=== PATIENT | female | born 1960 | race Caucasian/White ===

== ENCOUNTER 2017-04-14 21:30 | Inpatient (IN) | payer MEDICARE, MEDICAID ==
[~2017-04-14] VITALS: Ht 152.4 cm; Wt 91.5 kg
[~2017-04-14 21:30] MED LIST: APRESOLINE50 MG PO; CATAPRES 0.1MG0.1 MG PO; COZAAR 50MG50 MG/TAB PO; FOLIC ACID 11 MG/TA1 PO; LASIX 20MG TABL20 MG PO; LIPITOR 40MG TA40 MG PO; NEURONTIN300 MG/CAP PO; NEURONTIN800 MG/TAB PO; PHENERGAN W/CO120 M1 PO; PLAVIX 75MG TAB75 MG PO; ULTRAM 50MG TAB50 MG PO; ZANTAC 300300 MG PO; ZITHROMAX Z PA250 MG PO; ZOFRAN ODT4 MG PO
[2017-04-14] MEDS ORDERED: ZOCOR 10MG10 MG PO (22:03)
[2017-04-14] MEDS ORDERED: NEURONTIN300 MG/CAP PO ×2 (22:06)
[2017-04-14] MEDS ORDERED: NEURONTIN800 MG/TAB PO (22:07)
[2017-04-14 22:48] LABS: MEAN CELL VOLUME 87 fl (80.0-100.0); MEAN CORPUSCULAR HGB CONC 32 g/dl (33.0-37.0); MEAN PLATELET VOLUME 10.3 fl (7.4-10.4); PLATELET COUNT 184 K/mm3 (130-400); RED BLOOD COUNT 3.12 M/mm3 (4.10-5.30); REDCELL DISTRIBUTION WIDTH-CV 16.8 % (11.5-14.5); WHITE BLOOD COUNT 5.7 K/mm3 (4.8-10.8)
[2017-04-14 22:52] LABS: ADD PATHOLOGY DIFF REVIEW NO; HEMATOCRIT 27.2 % (37.0-47.0); HEMOGLOBIN 8.8 g/dl (12.5-16.0); MEAN CORPUSCULAR HEMOGLOBIN 28 pg (27.0-31.0)
[2017-04-14 23:00] LABS: ADJUSTED CALCIUM 8.9 mg/dL (8.4-10.2); ALANINE AMINOTRANSFERASE 19 U/L (9-52); ALBUMIN 3.7 gm/dL (3.5-5.0); ALKALINE PHOSPHATASE 65 U/L (50-136); ANION GAP 13 mmol/L (7-16); BILIRUBIN,TOTAL 0.4 mg/dL (0.0-1.0); BLOOD UREA NITROGEN 21 mg/dL (7-17); C-REACTIVE PROTEIN 2.7 mg/dL (0.0-0.9); CALCIUM 8.7 mg/dL (8.4-10.2); CARBON DIOXIDE 25 mmol/L (22-30); CHLORIDE 99 mmol/L (98-107); MAGNESIUM 1.8 mg/dL (1.6-2.3); PHOSPHOROUS 3.3 mg/dL (2.5-4.5); POTASSIUM 3.9 mmol/L (3.4-5.0); SODIUM 137 mmol/L (137-145); TOTAL PROTEIN 6.7 gm/dL (6.4-8.2)
[2017-04-14 23:01] LABS: GLUCOSE 438 mg/dL (74-106)
[2017-04-14 23:02] LABS: BAND 7 % (0-10); METAMYELOCYTE 1 % (0-0); NEUTROPHILS 54 % (42.0-75.2); TOTAL CELLS COUNTED 100
[2017-04-14 23:03] LABS: ANISOCYTOSIS 1+; PLATELET ESTIMATE NORMAL (NORMAL)
[2017-04-14 23:09] LABS: B-TYPE NATRIURETIC PEPTIDE 576 pg/mL (0-125); TROPONIN-I < 0.012 ng/mL (0.000-0.034)
[2017-04-14] MEDS ORDERED: LANTUS SOLOS100 U/ML SQ ×3 (23:24→23:35)
[2017-04-14] MEDS ORDERED: HUMALOG100 U/ML SQ (23:37)
[2017-04-14 23:49] LABS: VENOUS BLOOD GAS BE -0.1 (-4-4); VENOUS BLOOD GAS SAO2 89.2 % (60-80)
[2017-04-14 23:50] LABS: VENOUS BLOOD GAS SITE VENIPUNCTURE
[2017-04-15] VITALS (148 sets, daily range): BP systolic 108–164; BP diastolic 48–79; PULSE 57–92; TEMP 96–98.5; O2SAT 90–100
[2017-04-15 00:50] LABS: PH 6 (5-8); SQUAMOUS EPITHELIAL None Seen /hpf; URINE APPEARANCE Clear; URINE BACTERIA None Seen /hpf; URINE BILIRUBIN Negative (NEGATIVE); URINE BLOOD 2+ (NEGATIVE); URINE COLOR Straw; URINE GLUCOSE 3+ (NEGATIVE); URINE KETONE Negative (NEGATIVE); URINE RBC None Seen /hpf; URINE UROBILINOGEN Negative (NEGATIVE); URINE WBC 0-2 /hpf
[2017-04-15 06:03] LABS: MEAN CELL VOLUME 89 fl (80.0-100.0); MEAN CORPUSCULAR HGB CONC 31 g/dl (33.0-37.0); MEAN PLATELET VOLUME 9.9 fl (7.4-10.4); PLATELET COUNT 184 K/mm3 (130-400); RED BLOOD COUNT 3.15 M/mm3 (4.10-5.30); REDCELL DISTRIBUTION WIDTH-CV 16.6 % (11.5-14.5); WHITE BLOOD COUNT 6.4 K/mm3 (4.8-10.8)
[2017-04-15 06:07] LABS: ADD PATHOLOGY DIFF REVIEW NO; HEMATOCRIT 28.1 % (37.0-47.0); HEMOGLOBIN 8.7 g/dl (12.5-16.0); MEAN CORPUSCULAR HEMOGLOBIN 28 pg (27.0-31.0)
[2017-04-15 06:13] LABS: ANION GAP 10 mmol/L (7-16); BLOOD UREA NITROGEN 16 mg/dL (7-17); CALCIUM 8.2 mg/dL (8.4-10.2); CARBON DIOXIDE 24 mmol/L (22-30); CHLORIDE 106 mmol/L (98-107); CREATININE, serum 0.91 mg/dL (0.52-1.25); GLUCOSE 253 mg/dL (74-106); POTASSIUM 4.8 mmol/L (3.4-5.0); SODIUM 139 mmol/L (137-145)
[2017-04-15 06:29] LABS: TROPONIN-I < 0.012 ng/mL (0.000-0.034)
[2017-04-15 06:31] LABS: BAND 7 % (0-10); BASOPHIL 1 % (0-2); NEUTROPHILS 80 % (42.0-75.2); PLATELET ESTIMATE NORMAL (NORMAL); TOTAL CELLS COUNTED 100
[2017-04-15 06:34] LABS: TOTAL IRON BINDING CAPACITY 294 ug/dL (265-497)
[2017-04-16] VITALS (7 sets, daily range): BP systolic 94–155; BP diastolic 41–67; PULSE 60–78; TEMP 98–100.9
[2017-04-16 06:45] LABS: MEAN CELL VOLUME 91 fl (80.0-100.0); MEAN CORPUSCULAR HGB CONC 31 g/dl (33.0-37.0); MEAN PLATELET VOLUME 10.5 fl (7.4-10.4); PLATELET COUNT 188 K/mm3 (130-400); RED BLOOD COUNT 2.77 M/mm3 (4.10-5.30); REDCELL DISTRIBUTION WIDTH-CV 17.4 % (11.5-14.5); WHITE BLOOD COUNT 8.8 K/mm3 (4.8-10.8)
[2017-04-16 06:58] LABS: ADD PATHOLOGY DIFF REVIEW NO; HEMATOCRIT 25.3 % (37.0-47.0); HEMOGLOBIN 7.8 g/dl (12.5-16.0); MEAN CORPUSCULAR HEMOGLOBIN 28 pg (27.0-31.0)
[2017-04-16 07:10] LABS: CALCIUM 8.3 mg/dL (8.4-10.2); CREATININE, serum 1.22 mg/dL (0.52-1.25); POTASSIUM 4.3 mmol/L (3.4-5.0)
[2017-04-16 08:32] LABS: BAND 24 % (0-10); EOSINOPHIL 2 % (0-4); METAMYELOCYTE 1 % (0-0); MYELOCYTE 7 % (0-0); NEUTROPHILS 56 % (42.0-75.2); TOTAL CELLS COUNTED 100
[2017-04-16 08:33] LABS: ANISOCYTOSIS 3+; HYPOCHROMIA 1+; PLATELET ESTIMATE NORMAL (NORMAL)
[2017-04-17 01:10] VITALS: BP 107/58; PULSE 60; TEMP 97.6
[2017-04-17 04:50] VITALS: BP 106/53; PULSE 57; TEMP 98.1
[2017-04-17 07:13] LABS: MEAN CELL VOLUME 92 fl (80.0-100.0); MEAN CORPUSCULAR HGB CONC 30 g/dl (33.0-37.0); MEAN PLATELET VOLUME 10.4 fl (7.4-10.4); PLATELET COUNT 160 K/mm3 (130-400); RED BLOOD COUNT 2.62 M/mm3 (4.10-5.30); REDCELL DISTRIBUTION WIDTH-CV 17.5 % (11.5-14.5); WHITE BLOOD COUNT 7.1 K/mm3 (4.8-10.8)
[2017-04-17 07:20] LABS: ADD PATHOLOGY DIFF REVIEW NO; HEMOGLOBIN 7.3 g/dl (12.5-16.0); MEAN CORPUSCULAR HEMOGLOBIN 28 pg (27.0-31.0)
[2017-04-17 07:25] LABS: CALCIUM 8.4 mg/dL (8.4-10.2); CREATININE, serum 1.26 mg/dL (0.52-1.25); POTASSIUM 4.4 mmol/L (3.4-5.0)
[2017-04-17 08:30] LABS: ANISOCYTOSIS 1+; BAND 14 % (0-10); EOSINOPHIL 2 % (0-4); HYPOCHROMIA 1+; MYELOCYTE 2 % (0-0); NEUTROPHILS 62 % (42.0-75.2); PLATELET ESTIMATE NORMAL (NORMAL); TOTAL CELLS COUNTED 100
[2017-04-17] MEDS ORDERED: LOPRESSOR 550 MG/TAB PO (08:31)
[2017-04-17] MEDS ORDERED: LIPITOR 10MG10 MG PO (08:31)
[2017-04-17] MEDS ORDERED: LEVEMIR100 U/ML SQ (08:33)
[2017-04-17] MEDS ORDERED: AMOXICILLIN 8751 TAB PO (08:34)
== END 2017-04-17 11:15 | disposition home or self-care (01) | DRG 179 ==
LOC: COL.ER 21:30 → ICU 04-15 00:44 → SURG 04-15 14:14
PROVIDERS: Emergency Medicine; Family Medicine; Internal Medicine
DX: J69.0 Pneumonitis due to inhalation of food and vomit (principal); E11.40 Type 2 diabetes mellitus with diabetic neuropathy, unspecified; E11.43 Type 2 diabetes mellitus with diabetic autonomic (poly)neuropathy; K31.84 Gastroparesis; I16.0 Hypertensive urgency; E11.65 Type 2 diabetes mellitus with hyperglycemia; R07.89 Other chest pain; E78.5 Hyperlipidemia, unspecified; D64.9 Anemia, unspecified; Z86.718 Personal history of other venous thrombosis and embolism; Z79.01 Long term (current) use of anticoagulants; Z79.4 Long term (current) use of insulin
CPT/HCPCS: 99223-AI; 99232-AI; 99239; A9284; C9113; J1650; J1815; J2543; J2930; J7030; J7050

== ENCOUNTER 2017-04-18 06:35 | Inpatient (IN) | payer MEDICARE ==
[~2017-04-18] VITALS: Ht 152.4 cm; Wt 78.7 kg
[~2017-04-18 06:35] MED LIST changes: +AMOXICILLIN 8751 TAB PO; +HUMALOG100 U/ML SQ; +LANTUS SOLOS100 U/ML SQ; +LEVEMIR100 U/ML SQ; +LIPITOR 10MG10 MG PO; +LOPRESSOR 550 MG/TAB PO; +ZOCOR 10MG10 MG PO
[2017-04-18 07:06] LABS: INR 1.1 (0.8-3.0); MEAN CELL VOLUME 89 fl (80.0-100.0); MEAN CORPUSCULAR HGB CONC 32 g/dl (33.0-37.0); MEAN PLATELET VOLUME 10.2 fl (7.4-10.4); PLATELET COUNT 213 K/mm3 (130-400); PROTHROMBIN TIME 12.7 SECONDS (9.7-12.8); REDCELL DISTRIBUTION WIDTH-CV 17.1 % (11.5-14.5); WHITE BLOOD COUNT 9.9 K/mm3 (4.8-10.8)
[2017-04-18 07:07] LABS: ADD PATHOLOGY DIFF REVIEW NO; HEMATOCRIT 26.8 % (37.0-47.0); HEMOGLOBIN 8.5 g/dl (12.5-16.0); MEAN CORPUSCULAR HEMOGLOBIN 28 pg (27.0-31.0)
[2017-04-18 07:12] LABS: ALANINE AMINOTRANSFERASE 22 U/L (9-52); ALBUMIN 3.8 gm/dL (3.5-5.0); ALKALINE PHOSPHATASE 80 U/L (50-136); ANION GAP 10 mmol/L (7-16); BILIRUBIN,TOTAL 0.6 mg/dL (0.0-1.0); BLOOD UREA NITROGEN 18 mg/dL (7-17); CALCIUM 8.8 mg/dL (8.4-10.2); CARBON DIOXIDE 26 mmol/L (22-30); CHLORIDE 103 mmol/L (98-107); CREATINE KINASE 22 U/L (30-135); CREATININE, serum 1.14 mg/dL (0.52-1.25); GLUCOSE 211 mg/dL (74-106); LIPASE 28 U/L (23-300); POTASSIUM 4.3 mmol/L (3.4-5.0); SODIUM 139 mmol/L (137-145); TOTAL PROTEIN 7.2 gm/dL (6.4-8.2)
[2017-04-18 07:24] LABS: B-TYPE NATRIURETIC PEPTIDE 6150 pg/mL (0-125)
[2017-04-18 07:28] LABS: TROPONIN-I < 0.012 ng/mL (0.000-0.034)
[2017-04-18 08:31] LABS: VENOUS BLOOD GAS BE 0.9 (-4-4); VENOUS BLOOD GAS SAO2 78.5 % (60-80)
[2017-04-18 08:33] LABS: VENOUS BLOOD GAS SITE VENIPUNCTURE
[2017-04-18 09:15] LABS: ANISOCYTOSIS 1+; BAND 33 % (0-10); BASOPHIL 1 % (0-2); EOSINOPHIL 1 % (0-4); METAMYELOCYTE 1 % (0-0); MYELOCYTE 2 % (0-0); NEUTROPHILS 41 % (42.0-75.2); PLATELET ESTIMATE NORMAL (NORMAL); TOTAL CELLS COUNTED 100
[2017-04-18 09:16] LABS: HYPOCHROMIA 1+
[2017-04-18 10:29] VITALS: BP 139/55; PULSE 72; TEMP 100.3
[2017-04-18 15:22] VITALS: BP 155/59; PULSE 71; TEMP 98.9
[2017-04-18 22:42] VITALS: BP 135/59; PULSE 66; TEMP 98.5
[2017-04-19 02:50] VITALS: BP 133/48; PULSE 65; TEMP 98.5
[2017-04-19 07:05] LABS: MEAN CELL VOLUME 88 fl (80.0-100.0); MEAN CORPUSCULAR HGB CONC 32 g/dl (33.0-37.0); MEAN PLATELET VOLUME 9.9 fl (7.4-10.4); PLATELET COUNT 233 K/mm3 (130-400); RED BLOOD COUNT 2.74 M/mm3 (4.10-5.30); REDCELL DISTRIBUTION WIDTH-CV 16.7 % (11.5-14.5); WHITE BLOOD COUNT 6.7 K/mm3 (4.8-10.8)
[2017-04-19 07:14] LABS: CALCIUM 8.6 mg/dL (8.4-10.2); CREATININE, serum 1.02 mg/dL (0.52-1.25)
[2017-04-19 07:21] LABS: ADD PATHOLOGY DIFF REVIEW NO; HEMOGLOBIN 7.7 g/dl (12.5-16.0); MEAN CORPUSCULAR HEMOGLOBIN 28 pg (27.0-31.0)
[2017-04-19 08:58] VITALS: BP 160/74; PULSE 82; TEMP 97.9
[2017-04-19 08:58] LABS: BAND 21 % (0-10); BASOPHIL 2 % (0-2); EOSINOPHIL 4 % (0-4); NEUTROPHILS 40 % (42.0-75.2); TOTAL CELLS COUNTED 100
[2017-04-19 08:59] LABS: PLATELET ESTIMATE NORMAL (NORMAL)
[2017-04-19 12:01] VITALS: BP 124/56; PULSE 67; TEMP 98.1
[2017-04-19 16:19] VITALS: BP 112/62; PULSE 72; TEMP 98.1
[2017-04-19 20:48] VITALS: BP 132/60; PULSE 81; TEMP 98.7
[2017-04-19 23:14] VITALS: BP 109/55; PULSE 65; TEMP 98.9
[2017-04-20] VITALS (7 sets, daily range): BP systolic 96–196; BP diastolic 38–86; PULSE 55–78; TEMP 97.6–98.4
[2017-04-20 06:26] LABS: BASO % 0.3 % (0.0-2.0); EOS # 0.3 (0.0-0.7); EOS % 3.9 % (0-4.0); GRAN # 4.1 (1.4-6.5); GRAN % 64.4 % (42.2-75.2); LYMPH # 1.4 (1.2-3.4); LYMPH % 22.3 % (20.0-51.0); MEAN CELL VOLUME 90 fl (80.0-100.0); MEAN CORPUSCULAR HGB CONC 31 g/dl (33.0-37.0); MEAN PLATELET VOLUME 9.3 fl (7.4-10.4); MONO # 0.5 (0.1-0.6); MONO % 7.9 % (1.7-9.3); PLATELET COUNT 210 K/mm3 (130-400); RED BLOOD COUNT 2.87 M/mm3 (4.10-5.30); REDCELL DISTRIBUTION WIDTH-CV 17.2 % (11.5-14.5); WHITE BLOOD COUNT 6.4 K/mm3 (4.8-10.8)
[2017-04-20 06:27] LABS: HEMATOCRIT 25.7 % (37.0-47.0); HEMOGLOBIN 7.9 g/dl (12.5-16.0); MEAN CORPUSCULAR HEMOGLOBIN 28 pg (27.0-31.0)
[2017-04-20 06:41] LABS: CALCIUM 8.7 mg/dL (8.4-10.2); CREATININE, serum 1.09 mg/dL (0.52-1.25); POTASSIUM 3.8 mmol/L (3.4-5.0)
[2017-04-21 00:49] VITALS: BP 131/61; PULSE 82; TEMP 98.2
[2017-04-21 05:08] VITALS: BP 119/45; PULSE 65; TEMP 97.8
[2017-04-21 07:58] VITALS: BP 139/76; PULSE 73; TEMP 97.4
[2017-04-21 08:23] LABS: MEAN CELL VOLUME 89 fl (80.0-100.0); MEAN CORPUSCULAR HGB CONC 32 g/dl (33.0-37.0); MEAN PLATELET VOLUME 9.1 fl (7.4-10.4); PLATELET COUNT 242 K/mm3 (130-400); RED BLOOD COUNT 3.17 M/mm3 (4.10-5.30); REDCELL DISTRIBUTION WIDTH-CV 17.3 % (11.5-14.5); WHITE BLOOD COUNT 7.5 K/mm3 (4.8-10.8)
[2017-04-21 08:32] LABS: CALCIUM 9.3 mg/dL (8.4-10.2); CREATININE, serum 1.01 mg/dL (0.52-1.25); POTASSIUM 3.9 mmol/L (3.4-5.0)
[2017-04-21 08:34] LABS: HEMATOCRIT 28.2 % (37.0-47.0); HEMOGLOBIN 8.9 g/dl (12.5-16.0); MEAN CORPUSCULAR HEMOGLOBIN 28 pg (27.0-31.0)
[2017-04-21 08:36] LABS: ADD PATHOLOGY DIFF REVIEW NO
[2017-04-21 09:29] LABS: ANISOCYTOSIS 2+; BAND 19 % (0-10); BASOPHIL 1 % (0-2); EOSINOPHIL 4 % (0-4); METAMYELOCYTE 1 % (0-0); NEUTROPHILS 48 % (42.0-75.2); PLATELET ESTIMATE NORMAL (NORMAL); TOTAL CELLS COUNTED 100
[2017-04-21 09:30] LABS: HYPOCHROMIA 1+
[2017-04-21] MEDS ORDERED: LASIX 40MG TABL40 MG PO (10:07)
[2017-04-21] MEDS ORDERED: LANTUS100 U/ML SQ (10:10)
[2017-04-21 11:05] VITALS: BP 115/51; PULSE 63; TEMP 98.2
== END 2017-04-21 12:28 | disposition home or self-care (01) | DRG 291 ==
LOC: COL.ER 06:35 → MEDICAL 07:33
PROVIDERS: Emergency Medicine; Family Medicine; Nurse Practitioner Family
DX: I11.0 Hypertensive heart disease with heart failure (principal); J18.9 Pneumonia, unspecified organism; K52.1 Toxic gastroenteritis and colitis; I50.31 Acute diastolic (congestive) heart failure; E11.40 Type 2 diabetes mellitus with diabetic neuropathy, unspecified; E11.43 Type 2 diabetes mellitus with diabetic autonomic (poly)neuropathy; K31.84 Gastroparesis; D64.9 Anemia, unspecified; E87.6 Hypokalemia; T36.95XA Adverse effect of unspecified systemic antibiotic, initial encounter; E11.65 Type 2 diabetes mellitus with hyperglycemia; Z79.01 Long term (current) use of anticoagulants
CPT/HCPCS: 99223-AI; 99232-AI; 99239; J0692; J1815; J1940; J2060; J2405; J2550; J7030

== ENCOUNTER → 2017-04-30 | Outpatient (CLI) | payer MEDICARE ==
[~2017-04-30] MED LIST changes: +LANTUS100 U/ML SQ; +LASIX 40MG TABL40 MG PO
[2017-04-30 09:11] LABS: HEMOGLOBIN 10.8 g/dl (12.5-16.0); MEAN CELL VOLUME 87 fl (80.0-100.0); MEAN CORPUSCULAR HEMOGLOBIN 28 pg (27.0-31.0); MEAN CORPUSCULAR HGB CONC 33 g/dl (33.0-37.0); MEAN PLATELET VOLUME 9.6 fl (7.4-10.4); PLATELET COUNT 232 K/mm3 (130-400); RED BLOOD COUNT 3.81 M/mm3 (4.10-5.30); REDCELL DISTRIBUTION WIDTH-CV 15.2 % (11.5-14.5); WHITE BLOOD COUNT 6.3 K/mm3 (4.8-10.8)
[2017-04-30 09:27] LABS: ADJUSTED CALCIUM 9.3 mg/dL (8.4-10.2); ALBUMIN 4.2 gm/dL (3.5-5.0); BILIRUBIN,TOTAL 0.7 mg/dL (0.0-1.0); CALCIUM 9.5 mg/dL (8.4-10.2); CREATININE, serum 0.77 mg/dL (0.52-1.25); MAGNESIUM 1.8 mg/dL (1.6-2.3); PHOSPHOROUS 3.9 mg/dL (2.5-4.5); POTASSIUM 4.3 mmol/L (3.4-5.0); TOTAL PROTEIN 8.1 gm/dL (6.4-8.2)
[2017-04-30 09:57] LABS: THYROID STIMULATING HORMONE 2.39 uIU/mL (0.465-4.680)
[2017-05-01 01:03] LABS: T3 TOTAL 93 ng/dL (87-178)
== END ==
LOC: COL.LAB 08:19
PROVIDERS: Family Medicine
DX: E11.42 Type 2 diabetes mellitus with diabetic polyneuropathy (principal); G60.9 Hereditary and idiopathic neuropathy, unspecified; Z86.2 Personal history of diseases of the blood and blood-forming organs and certain disorders involving the immune mechanism

== ENCOUNTER → 2017-06-04 | Outpatient (CLI) | payer MEDICARE | LOC: COL.VAS 06-02 10:00 | DX: I50.9 Heart failure, unspecified (principal); I08.1 Rheumatic disorders of both mitral and tricuspid valves; I31.3 Pericardial effusion (noninflammatory); J69.0 Pneumonitis due to inhalation of food and vomit ==

== ENCOUNTER → 2017-11-19 | Outpatient (CLI) | payer MEDICARE, MEDICAID ==
[2017-11-19 10:02] LABS: COLLECTION METHOD CLEAN CATCH
[2017-11-19 10:09] LABS: BASO # 0.1 (0.0-0.2); BASO % 0.8 % (0.0-2.0); EOS # 0.2 (0.0-0.7); EOS % 2.6 % (0-4.0); GRAN # 4.3 (1.4-6.5); GRAN % 59.6 % (42.2-75.2); LYMPH # 2.1 (1.2-3.4); LYMPH % 28.8 % (20.0-51.0); MEAN CELL VOLUME 84 fl (80.0-100.0); MEAN CORPUSCULAR HGB CONC 33 g/dl (33.0-37.0); MEAN PLATELET VOLUME 10.2 fl (7.4-10.4); MONO # 0.5 (0.1-0.6); MONO % 7.5 % (1.7-9.3); PLATELET COUNT 174 K/mm3 (130-400); RED BLOOD COUNT 4.16 M/mm3 (4.10-5.30); REDCELL DISTRIBUTION WIDTH-CV 13.3 % (11.5-14.5)
[2017-11-19 10:10] LABS: HEMATOCRIT 35.1 % (37.0-47.0); HEMOGLOBIN 11.6 g/dl (12.5-16.0); MEAN CORPUSCULAR HEMOGLOBIN 28 pg (27.0-31.0)
[2017-11-19 10:19] LABS: ALBUMIN 4.4 gm/dL (3.5-5.0); BILIRUBIN,TOTAL 0.5 mg/dL (0.0-1.0); CALCIUM 9.6 mg/dL (8.4-10.2); CHOLESTEROL RISK RATIO 3.6; CREATININE, serum 0.86 mg/dL (0.52-1.25); POTASSIUM 4.4 mmol/L (3.4-5.0); TOTAL PROTEIN 7.9 gm/dL (6.4-8.2)
[2017-11-19 11:06] LABS: PH 8 (5-8); URINE APPEARANCE Cloudy; URINE BACTERIA Rare /hpf; URINE BILIRUBIN Negative (NEGATIVE); URINE BLOOD Negative (NEGATIVE); URINE COLOR Yellow; URINE GLUCOSE 3+ (NEGATIVE); URINE KETONE Negative (NEGATIVE); URINE LEUKOCYTE ESTERASE Negative (NEGATIVE); URINE NITRATE Negative (NEGATIVE); URINE PROTEIN(semi-quant) 1+ (NEGATIVE); URINE UROBILINOGEN Negative (NEGATIVE)
== END ==
LOC: COL.LAB 09:25
PROVIDERS: Registered Nurse
DX: E11.42 Type 2 diabetes mellitus with diabetic polyneuropathy (principal); I10 Essential (primary) hypertension; K21.9 Gastro-esophageal reflux disease without esophagitis

== ENCOUNTER → 2018-01-03 | Outpatient (CLI) | payer MEDICARE, MEDICAID ==
[2018-01-03 08:35] LABS: COLLECTION METHOD CLEAN CATCH
[2018-01-03 08:40] LABS: BASO % 0.5 % (0.0-2.0); EOS # 0.2 (0.0-0.7); EOS % 2.4 % (0-4.0); GRAN # 4.5 (1.4-6.5); GRAN % 57.5 % (42.2-75.2); LYMPH # 2.5 (1.2-3.4); LYMPH % 31.6 % (20.0-51.0); MEAN CELL VOLUME 84 fl (80.0-100.0); MEAN CORPUSCULAR HGB CONC 33 g/dl (33.0-37.0); MEAN PLATELET VOLUME 10.2 fl (7.4-10.4); MONO # 0.6 (0.1-0.6); MONO % 7.2 % (1.7-9.3); PLATELET COUNT 175 K/mm3 (130-400); RED BLOOD COUNT 3.91 M/mm3 (4.10-5.30); REDCELL DISTRIBUTION WIDTH-CV 13.3 % (11.5-14.5)
[2018-01-03 08:42] LABS: HEMATOCRIT 32.9 % (37.0-47.0); HEMOGLOBIN 10.7 g/dl (12.5-16.0); MEAN CORPUSCULAR HEMOGLOBIN 27 pg (27.0-31.0)
[2018-01-03 08:48] LABS: MUCOUS Present /lpf; PH 6 (5-8); SQUAMOUS EPITHELIAL 0-2 /hpf; URINE APPEARANCE Clear; URINE BACTERIA None Seen /hpf; URINE BILIRUBIN Negative (NEGATIVE); URINE BLOOD Negative (NEGATIVE); URINE COLOR Straw; URINE GLUCOSE 3+ (NEGATIVE); URINE KETONE Negative (NEGATIVE); URINE LEUKOCYTE ESTERASE Negative (NEGATIVE); URINE NITRATE Negative (NEGATIVE); URINE PROTEIN(semi-quant) Negative (NEGATIVE); URINE RBC 0-2 /hpf; URINE UROBILINOGEN Negative (NEGATIVE); URINE WBC 0-2 /hpf
[2018-01-03 08:49] LABS: ALBUMIN 3.8 gm/dL (3.5-5.0); BILIRUBIN,TOTAL 0.4 mg/dL (0.0-1.0); CALCIUM 9.3 mg/dL (8.4-10.2); CHOLESTEROL RISK RATIO 3.7; CREATININE, serum 1.08 mg/dL (0.52-1.25); POTASSIUM 4.1 mmol/L (3.4-5.0); TOTAL PROTEIN 7.2 gm/dL (6.4-8.2)
== END ==
LOC: COL.LAB 07:54
PROVIDERS: Internal Medicine Interventional Cardiology
DX: E11.42 Type 2 diabetes mellitus with diabetic polyneuropathy (principal); I10 Essential (primary) hypertension; K21.9 Gastro-esophageal reflux disease without esophagitis